=== PATIENT | female | born 2005 | race African-American/Black ===

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

== ENCOUNTER 2025-10-15 12:00 | Emergency (ER) | payer MEDICAID, OTHER, SELFPAY ==
[2025-10-15 12:56] LABS: Glucose, Urine (Dipstick) Normal (Negative); Leukocyte 25 (Negative); Protein, Urine (Dipstick) 30 mg/dl (Neg-Trace); Specific Gravity, Urine 1.030 (1.005-1.030)
[2025-10-15 13:05] LABS: CAUTI Indications for Culture Acute Hematuria; RBC/HPF Greater than 50 HPF (0-3)
[2025-10-15 13:05] LABS: #Basophils 0.05 10x3/uL (0.0-0.2); #Eosinophils 0.10 10x3/uL (0.0-0.5); #Monocytes 0.52 10x3/uL (0.0-1.1); #Neutrophils 2.31 10x3/uL (1.5-8.4); %Basophils 1.1 % (0.0-2.0); %Eosinophils 2.2 % (0.0-6.0); %Lymphocytes 33.8 % (18.0-47.0); %Monocytes 11.5 % (0.0-10.0); %Neutrophils 51.2 % (40.0-75.0); Hematocrit 35.8 % (34.9-44.5); Hemoglobin 12.1 g/dL (12.0-15.5); Mean Corpuscular Hemoglobin 31.1 pg (27.0-33.0); Mean Corpuscular Volume 92.0 fL (81.6-98.3); Platelet Count 211 10x3/uL (150-450); Red Blood Cell (RBC) Count 3.89 10x6/uL (3.90-5.03); White Blood Cell (WBC) Count 4.52 10x3/uL (3.5-10.5)
[2025-10-15 13:06] LABS: Bacteria/HPF 4+ HPF (None Seen)
[2025-10-15 13:07] LABS: Urine Culture Reflex No No
[2025-10-15 14:25] LABS: Pregnancy Test - Urine (BHCG) Negative (Negative); Pregu Control Background? CLEAR/WHITE (CLR/WHITE); Pregu Control Bar Appear? YES (CONTROL BAR)
== END 2025-10-15 15:00 | disposition home or self-care (01) ==
LOC: CSHERS 12:00
DX: N93.9 Abnormal uterine and vaginal bleeding, unspecified (principal)
CPT/HCPCS: 36415; 81001; 81025; 85025; 86900; 86901; 99284